=== PATIENT | female | born 1960 | race American Indian/Alaskan Native ===

== ENCOUNTER 2018-01-16 09:57 | Outpatient (CLI) | payer MEDICAID ==
--- NOTE | 2018-01-16 13:35 | Fluoroscopy Report ---
UPPER GI SERIES WITH AIR-CONTRAST History: Abdominal pain. Findings: Gyroscopic Instrument Mechanic film of the abdomen demonstrates a normal bowel gas pattern. Surgical sutures are noted near the GE junction. Cholecystectomy clips are identified in the right upper quadrant. 39 fluoroscopic images were obtained. Deglutition is normal. No evidence for aspiration. The esophagus is normal caliber and mucosal pattern throughout. Normal motility. No hiatal hernia. Gastric bypass surgery changes are identified. There is a small gastric pouch which is grossly normal. There is prompt emptying into proximal small bowel loops. No abnormality at the anastomosis is detected. The visualized small bowel loops demonstrate normal caliber and mucosal pattern. Impression: No abnormality is identified. Gastric bypass surgery changes are noted with no abnormality.
== END 2018-01-16 09:58 | disposition home or self-care (01) ==
LOC: FLUORO 09:57
PROVIDERS: ATTEND Specialist
DX: R10.84 Generalized abdominal pain (principal); R11.2 Nausea with vomiting, unspecified; Z90.49 Acquired absence of other specified parts of digestive tract; Z98.84 Bariatric surgery status
CPT/HCPCS: 74247

== ENCOUNTER 2018-01-16 11:34 | Emergency (ER) | payer MEDICAID ==
[2018-01-16 11:47] VITALS: BP 151/86
[2018-01-16 12:19] LABS: Basophils % (Auto) 1.1 % (0.0-1.8); Eosinophils # (Auto) 0.2 K/mm3 (0.0-0.4); Eosinophils % (Auto) 6.3 % (0.0-4.3); Hematocrit 37.5 % (30.3-42.9); Hemoglobin 12.7 gm/dl (10.1-14.3); Lymphocytes # (Auto) 1.5 K/mm3 (1.2-5.4); Mean Corpuscular HGB Conc 34 % (30-34); Mean Corpuscular Hemoglobin 32 pg (28-32); Mean Corpuscular Volume 95 fl (79-97); Monocytes # (Auto) 0.3 K/mm3 (0.0-0.8); Monocytes % (Auto) 8.3 % (0.0-7.3); Platelet Count 276 K/mm3 (140-440); Red Blood Count 3.96 M/mm3 (3.65-5.03); Red Cell Distribution Width 14.1 % (13.2-15.2)
[2018-01-16 12:26] LABS: Alanine Aminotransferase 12 units/L (7-56); Albumin 4.2 g/dL (3.9-5); BUN/Creatinine Ratio 22; Blood Urea Nitrogen 11 mg/dL (7-17); Calcium 8.8 mg/dL (8.4-10.2); Hemolysis Index 2
--- NOTE | 2018-01-16 13:37 | Emergency Department Report ---
Blank Doc - Documentation Documentation: Patient is a 58-year-old [place] female who is presenting with epigastric pain. Patient states pains with off and on for approximately a year but is worsening. Patient states is worse after she eats it does cause nausea vomiting. Patient was sent in by her primary physician for evaluation. Laboratory studies will be performed as well as an ultrasound of her gallbladder.
[2018-01-16] MEDS ORDERED: ZOFRAN ODT PO ONE (13:38)
[2018-01-16] MEDS ORDERED: MOTRIN PO ONE (13:38)
--- NOTE | 2018-01-16 14:18 | Ultrasound Report ---
ULTRASOUND ABDOMEN LIMITED: TECHNIQUE: Transabdominal ultrasound with color Doppler interrogation. HISTORY: right upper quadrant abdominal pain, nausea and vomiting. COMPARISON: none. FINDINGS: LIVER: Normal. BILIARY SYSTEM: Cholecystectomy. No biliary dilatation. The CBD measures 5.6 mm. PANCREAS: Normal. RIGHT KIDNEY: The right kidney is normal size but slightly echogenic suggesting nonspecific renal parenchymal disease. PROXIMAL AORTA: Normal. ASCITES: None. IMPRESSION: Cholecystectomy. No biliary dilatation. Nonspecific renal parenchymal disease. No acute inflammatory process appreciated.
--- NOTE | 2018-01-16 15:43 | Emergency Department Report ---
HPI - General Chief Complaint: Abdominal Pain Time Seen by Provider: 01/16/18 13:23 - HPI HPI: Is a 58-year-old female with no prior medical history who presents to ED complaining of intermittent epigastric abdominal cramping for the past year. Patient states pain is on and off and sometimes constantly nausea or vomiting. 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 Patient states pain is throbbing, constant right upper quadrant region. Patient states she is able to the and drink fluids fine. She denies fevers/chills/ constipation, diarrhea . ED Past Medical Hx - Past Medical History Hx Hypertension: Yes Additional medical history: RA - Surgical History Additional Surgical History: Hyst, gastric bypass - Social History Smoking Status: Never Smoker Substance Use Type: None - Medications Home Medications: Home Medications Medication Instructions Recorded Confirmed Last Taken Type Ondansetron [Zofran ODT TAB] 8 mg PO Q12HR #20 tab.rapdis 01/16/18 Unknown Rx Ranitidine HCl [Acid Director Of Patient Financial Services] 150 mg PO DAILY #20 tablet 01/16/18 Unknown Rx ED Review of Systems ROS: Stated complaint: ABD PAIN Other details as noted in HPI Constitutional: denies: chills, fever Eyes: denies: eye pain, eye discharge, vision change ENT: denies: ear pain, throat pain Respiratory: denies: cough, shortness of breath, wheezing Cardiovascular: denies: chest pain, palpitations Endocrine: no symptoms reported Gastrointestinal: denies: abdominal pain, nausea, diarrhea Genitourinary: denies: urgency, dysuria, discharge Musculoskeletal: denies: back pain, joint swelling, arthralgia Skin: denies: rash, lesions Neurological: denies: headache, weakness, paresthesias Psychiatric: denies: anxiety, depression Hematological/Lymphatic: denies: easy bleeding, easy bruising Physical Exam - Physical Exam Vital Signs: Vital Signs 01/16/18 01/16/18 11:43 13:44 Temperature 97.6 F Pulse Rate 68 Respiratory 18 18 Rate Blood Pressure 151/86 O2 Sat by Pulse 98 Oximetry Physical Exam: GENERAL: Alert and oriented x3, no apparent distress, Normal Gait, atraumatic. HEAD: Head is normocephalic and a-traumatic. MOUTH:Mouth is well hydrated and without lesions. Tonsils nonerythematous or swollen, Uvula midline, Tongue not elevated. Mucous membranes are moist. Posterior pharynx clear, no exudate or lesions. Patent airways. NECK: Supple. Non edematous, No lymphadenopathy or thyromegaly. No C-spine tenderness LUNGS: Symetrical with respiration, No wheezing, no rales or crackles, CTAB. HEART: S1, S2 present, regular rate and rhythm without murmur, no rubs, no gallops. Non tender to palpation ABDOMEN: No organomegaly was noted,Positive bowel sounds, soft, and non- distended. Mild tender to palpation on epigastic and RUQ but nontender on all other Quadrants, NO CVA tenderness. No erythema, no lesions BACK: Full range of motion, no spinal tenderness, nontender to palpation. SKIN: Warm and dry, No lesions, No ulceration or induration present. ED Course Vital Signs 01/16/18 01/16/18 11:43 13:44 Temperature 97.6 F Pulse Rate 68 Respiratory 18 18 Rate Blood Pressure 151/86 O2 Sat by Pulse 98 Oximetry ED Medical Decision Making - Lab Data Result diagrams: 01/16/18 11:55 01/16/18 11:55 Laboratory Last Values WBC 3.9 K/mm3 (4.5-11.0) L 01/16/18 11:55 RBC 3.96 M/mm3 (3.65-5.03) 01/16/18 11:55 Hgb 12.7 gm/dl (10.1-14.3) 01/16/18 11:55 Hct 37.5 % (30.3-42.9) 01/16/18 11:55 MCV 95 fl (79-97) 01/16/18 11:55 MCH 32 pg (28-32) 01/16/18 11:55 MCHC 34 % (30-34) 01/16/18 11:55 RDW 14.1 % (13.2-15.2) 01/16/18 11:55 Plt Count 276 K/mm3 (140-440) 01/16/18 11:55 Lymph % (Auto) 38.0 % (13.4-35.0) H 01/16/18 11:55 Ceiba % (Auto) 8.3 % (0.0-7.3) H 01/16/18 11:55 Eos % (Auto) 6.3 % (0.0-4.3) H 01/16/18 11:55 Baso % (Auto) 1.1 % (0.0-1.8) 01/16/18 11:55 Lymph # 1.5 K/mm3 (1.2-5.4) 01/16/18 11:55 Ceiba # 0.3 K/mm3 (0.0-0.8) 01/16/18 11:55 Eos # 0.2 K/mm3 (0.0-0.4) 01/16/18 11:55 Baso # 0.0 K/mm3 (0.0-0.1) 01/16/18 11:55 Seg Neutrophils % 46.3 % (40.0-70.0) 01/16/18 11:55 Seg Neutrophils # 1.8 K/mm3 (1.8-7.7) 01/16/18 11:55 Sodium 143 mmol/L (137-145) 01/16/18 11:55 Potassium 3.2 mmol/L (3.6-5.0) L 01/16/18 11:55 Chloride 101.4 mmol/L (98-107) 01/16/18 11:55 Carbon Dioxide 30 mmol/L (22-30) 01/16/18 11:55 Anion Gap 15 mmol/L 01/16/18 11:55 BUN 11 mg/dL (7-17) 01/16/18 11:55 Creatinine 0.5 mg/dL (0.7-1.2) L 01/16/18 11:55 Estimated GFR > 60 ml/min 01/16/18 11:55 BUN/Creatinine Ratio 22 % 01/16/18 11:55 Glucose 95 mg/dL (65-100) 01/16/18 11:55 Calcium 8.8 mg/dL (8.4-10.2) 01/16/18 11:55 Total Bilirubin 0.80 mg/dL (0.1-1.2) 01/16/18 11:55 AST 20 units/L (5-40) 01/16/18 11:55 ALT 12 units/L (7-56) 01/16/18 11:55 Alkaline Phosphatase 155 units/L (35-129) H 01/16/18 11:55 Total Protein 7.3 g/dL (6.3-8.2) 01/16/18 11:55 Albumin 4.2 g/dL (3.9-5) 01/16/18 11:55 Albumin/Globulin Ratio 1.4 % 01/16/18 11:55 - Radiology Data Radiology results: report reviewed, image reviewed FINDINGS: LIVER: Normal. BILIARY SYSTEM: Cholecystectomy. No biliary dilatation. The CBD measures 5.6 mm. PANCREAS: Normal. RIGHT KIDNEY: The right kidney is normal size but slightly echogenic suggesting nonspecific renal parenchymal disease. PROXIMAL AORTA: Normal. ASCITES: None. IMPRESSION: Cholecystectomy. No biliary dilatation. Nonspecific renal parenchymal disease. No acute inflammatory process appreciated. Transcribed By: TTR Dictated By: JIMY CALDWELL JR, MD Electronically Authenticated By: JIMY CALDWELL JR, MD Signed Date/Time: 01/16/18 1411 - Medical Decision Making 58-year-old female presents to the possible gastritis ED course: CBC, CMP, abdominal or she sound performed. CBC within normal limits CMP within normal limits elevated alkaline phosphatase. All she saw shows no abnormal findings I discussed all this labs and studies with the patien I discussed with the patient should need to follow up with the gastrologist. Patient did mention that she was told by a liver specialist after taking a biopsy of her liver that she had a rare liver disease. I discussed the patient to follow up with the framer Patient has signs are stable. She is in no acute distress. Patient states she really Lantus Remsen was going on she is why she came in. I discussed with the patient she will need to follow-up with a GI specialist to continue to monitor her liver enzymes. Patient understood all the instructions given. Critical care attestation.: If time is entered above; I have spent that time in minutes in the direct care of this critically ill patient, excluding procedure time. ED Disposition Clinical Impression: Liver cell injury Gastritis Qualifiers: Gastritis type: other gastritis Chronicity: chronic Gastritis bleeding: without bleeding Qualified Code(s): K29.50 - Unspecified chronic gastritis without bleeding Disposition: DC-01 TO HOME OR SELFCARE Is pt being admited?: No Does the pt Need Aspirin: No Condition: Stable Instructions: Abdominal Pain (ED), Gastritis (ED), Diet for Ulcers and Gastritis (ED) Additional Instructions: Make sure to follow up with the primary care physician as discussed. Take all your medications as you've been prescribed. Follow-up with framer. If you have any worsening symptoms or develop new symptoms please return to ED immediately. Prescriptions: Ondansetron [Zofran ODT TAB] 8 mg PO Q12HR #20 tab.rapdis Ranitidine HCl [Acid Director Of Patient Financial Services] 150 mg PO DAILY #20 tablet Referrals: PRIMARY CARE, [Primary Care Provider] - 3-5 Days [facility] [Provider Group] - 3-5 Days Forms: Accompanied Note, Work/School Release Form(ED) Time of Disposition: 15:46
[2018-01-16 16:02] LABS: Bacteria,Urine 1+ /HPF (Negative); Bilirubin,Urine NEG (Negative); Blood,Urine SM (Negative); Color,Urine Yellow (Yellow); Mucus,Urine FEW /HPF; Protein,Urine <15 mg/dL mg/dL (Negative)
== END 2018-01-16 16:42 | disposition home or self-care (01) ==
LOC: ED 11:34
DX: K29.50 Unspecified chronic gastritis without bleeding (principal); S36.119A Unspecified injury of liver, initial encounter; I10 Essential (primary) hypertension; M06.9 Rheumatoid arthritis, unspecified; Z98.84 Bariatric surgery status; X58.XXXA Exposure to other specified factors, initial encounter; Y93.89 Activity, other specified; Y99.8 Other external cause status; Y92.89 Other specified places as the place of occurrence of the external cause
CPT/HCPCS: 36415; 76705; 80053; 81001; 85025; Q0162

== ENCOUNTER 2018-04-02 06:30 | Day surgery (SDC) | payer MEDICAID ==
[~2018-04-02 06:30] MED LIST: NACL 0.9% 1000 ML 1,000 ML IV SCH
[2018-04-02] MEDS ORDERED: DIPRIVAN 10 MG/ML IV ONE ×2 (11:31→12:02)
[2018-04-02] MEDS ORDERED: WATER FOR IRRIG STERILE IR ONE (11:31)
[2018-04-02] MEDS ORDERED: HURRICAINE ONE 20% TOPICAL SPRAY MM (11:32)
--- NOTE | 2018-04-02 11:58 | Operative Report ---
Operative Report Operative Report: EGD Post bypass DATE: 04/02/18 OPERATIVE REPORT - EGD PREOP DIAGNOSIS: gastric dyspepsia POSTOP DIAGNOSIS: Suture granuloma, Marginal ulcers, failed GJ anastomosis SURGERY: Upper endoscopy. SURGEON: Dr. Jean Baptiste MEDICAL ASSEMBLY: Uziel Pruitt D.O TYPE OF ANESTHESIA: MAC. ESTIMATED BLOOD LOSS: None. COMPLICATIONS: None. SPECIMENS REMOVED: None. FINDINGS: 1. normal esophagus 2. gastric pouch - 50ml 3. gastrojejunal anastomosis is 20mm 4. Suture granuloma 5. Marginal ulcer at GJ 6. Marginal ulcer in pouch just proximal to GJ INDICATIONS:INDICATION FOR PROCEDURE: Patient is a 58-year-old F s/p gastric [place] [address] Jean Baptiste. The patient is here today for evaluation for revisional surgery. The patient is here for a planned EGD for gastric dyspepsia and epigastric pain. She is currently on a PPI but doesnt remember the name of it. PROCEDURE DETAILS: After consent was reviewed, patient was taken back to the operating room where patient was placed in the left lateral decubitus position and a bite block was placed in the mouth. After a time-out was called, MAC anesthesia was initiated. I then passed the endoscope into the patients oropharynx, into the esophagus, visualized the entire esophagus, which was all within normal limits. I then visualized the gastric pouch which was about 50ml in size. There was a suture granuloma. A marginal ulcer was noted at the GJ anastomosis and at the pouch just proximal to the GJ. The gastrojejunal anastomosis was normal at about 20mm. The proximal portion of the felix limb was normal. I then desufflated the gastric pouch and removed the endoscope. Patient tolerated procedure well and was transferred to recovery room in good and stable condition. Carafate and Omeprazole will be called in from the office to her pharmacy if she isnt already taking the medicine.
--- NOTE | 2018-04-02 11:58 | Anesthesia Consultation ---
Anesthesia Consult and Med Hx Date of service: 04/02/18 - Airway Anesthetic Teeth Evaluation: Dentures ROM Head & Neck: Adequate Mental/Hyoid Distance: Adequate Mallampati Class: Class II Intubation Access Assessment: Probably Good - Pulmonary Exam CTA: Yes - Cardiac Exam Cardiac Exam: RRR - Pre-Operative Health Status ASA Pre-Surgery Classification: ASA3 Proposed Anesthetic Plan: MAC - Pre-Anesthesia Comment Pre-Anesthesia Comments: rheumatoid arthiritis - Cardiovascular System Hx Hypertension: Yes - Gastrointestinal Hx Gastroesophageal Reflux Disease: Yes - Other Systems Hx Obesity: Yes
--- NOTE | 2018-04-02 11:59 | Anesthesia Day of Surgery ---
Anesthesia Day of Surgery - Day of Surgery Patient Examined: Yes Patient H&P Reviewed: Yes Patient is NPO: Yes
--- NOTE | 2018-04-02 12:00 | Discharge Summary ---
Providers - Providers Attending physician: MARTIN SAPP Primary care physician: DIAMOND SANDER Hospitalization Condition: Good Procedures: egd Hospital course: 58 y.o. F with hx of gastric bypass presented to endoscopy for EGD for eval of her epigastric pain. She tolerated the procedure well. 2 marginal ulcers were noted and a suture granuloma. Disposition: DC- TO HOME OR SELFCARE Core Measure Documentation - Palliative Care Palliative Care/ Comfort Measures: Not Applicable - Core Measures Any of the following diagnoses?: none Exam - Physical Exam Narrative exam: no change from prior - Constitutional Vitals: Temp Pulse Resp BP Pulse Ox 97.7 F 69 16 119/51 94 04/02/18 11:43 04/02/18 11:43 04/02/18 11:43 04/02/18 11:43 04/02/18 11:43 Plan Additional Instructions: The office will call in omeprazole 20 BID and carafate 1g/10ml to your pharmacy if you are not taking these medications as this time. Follow up with: GERALD JAMES MD [Primary Care Provider] - 7 Days
--- NOTE | 2018-04-02 12:05 | Post Anesthesia Evaluation ---
- Post Anesthesia Evaluation Patient Participated: Yes Airway Patent: Yes Stable Respiratory Function: Yes Nausea/Vomiting: No Temp > 96.8F: Yes Pain Manageable: Yes Adequeate Hydration: Yes Anesthesia Complications: No Block Receding Appropriately: Not Applicable Patient on Ventilator: No
[2018-04-02 12:25] VITALS: BP 134/56
== END 2018-04-02 06:31 | disposition home or self-care (01) ==
LOC: GIO 06:30
PROVIDERS: ATTEND Specialist
DX: K28.9 Gastrojejunal ulcer, unspecified as acute or chronic, without hemorrhage or perforation (principal); K91.89 Other postprocedural complications and disorders of digestive system; L92.8 Other granulomatous disorders of the skin and subcutaneous tissue; M06.9 Rheumatoid arthritis, unspecified; Z98.84 Bariatric surgery status
CPT/HCPCS: 43235; J2704; J7030

== ENCOUNTER 2018-04-16 11:00 | Outpatient (CLI) | payer MEDICAID | END 2018-04-16 11:01 | disposition home or self-care (01) | LOC: SLR 11:00 | PROVIDERS: ATTEND Otolaryngology | DX: G47.33 Obstructive sleep apnea (adult) (pediatric) (principal); I10 Essential (primary) hypertension; K21.9 Gastro-esophageal reflux disease without esophagitis | CPT/HCPCS: 95810 ==

== ENCOUNTER 2018-05-15 11:00 | Outpatient (CLI) | payer MEDICAID | END 2018-05-15 11:01 | disposition home or self-care (01) | LOC: SLR 11:00 | PROVIDERS: ATTEND Otolaryngology | DX: G47.33 Obstructive sleep apnea (adult) (pediatric) (principal) | CPT/HCPCS: 95811 ==